=== PATIENT | female | born 1965 | race African-American/Black ===

== ENCOUNTER 2017-09-19 00:12 | Inpatient (IN) | payer BC, MEDICAID ==
[~2017-09-19] VITALS: Ht 160 cm; Wt 83.9 kg
[2017-09-19] VITALS (8 sets, daily range): BP systolic 128–166; BP diastolic 61–93
[~2017-09-19 00:12] MED LIST: ATOR20TA65 PO; CARV12.545 PO; CLON0.2T PO; HYDR25TA PO; INSU3INS6 SUBCUT; SITA100T11 PO
[2017-09-19] MEDS ORDERED: ALBUTEROL (0.083%) 2.5MG/3ML NEB HHN STA (00:18)
[2017-09-19] MEDS ORDERED: METHYLPREDNISOLONE SOD SUCC 125 MG/2 ML VIAL IV STA (00:18)
[2017-09-19] MEDS ORDERED: IPRATROPIUM BROMIDE (0.02%) 0.5MG/2.5ML NEB HHN STA (00:18)
[2017-09-19] MEDS ORDERED: ASPIRIN 81MG TABLET PO ONE (00:30)
[2017-09-19] MEDS ORDERED: MAGNESIUM 2 G PREMIX 50 ML IV ONE (00:30)
[2017-09-19] MEDS ORDERED: LEVOFLOXACIN 250MG PREMIX 50 ML IV ONE (00:30)
[2017-09-19] MEDS ORDERED: LABETALOL HCL 20MG/4ML CARPUJECT IV ONE ×2 (00:45→04:15)
[2017-09-19] MEDS ORDERED: FUROSEMIDE 40MG/4ML VIAL IVP ONE (00:45)
[2017-09-19] MEDS ORDERED: LABETALOL 5MG/ML SYR 20 MG/4 ML SYRINGE IV NR ×2 (01:00→04:30)
[2017-09-19 01:08] LABS: BASOPHILS % 0.8 % (0.0-2.0); EOSINOPHILS % 5.7 % (0.0-5.0); HEMATOCRIT. 42.4 % (36.0-48.0); HEMOGLOBIN. 12.8 g/dL (12.0-16.0); LYMPHOCYTES % 44.5 % (20.0-50.0); MEAN CORPUSCULAR HEMOGLOBIN 26.3 pg (28.0-32.0); MEAN CORPUSCULAR VOLUME 87.6 fL (81.0-99.0); MEAN PLATELET VOLUME 10.1 fl (7.4-10.4); MONOCYTES % 4.3 % (2.0-8.0); NEUTROPHILS % 44.7 % (40.0-76.0); PLATELET 266 x1000/uL (130-400); RED BLOOD CELL COUNT 4.84 mill/uL (4.2-5.4); RED CELL DISTRIBUTION WIDTH 17.4 % (11.6-14.6)
[2017-09-19 01:15] LABS: PARTIAL THROMBOPLASTIN TIME 21.2 sec (23.4-31.0); PROTHROMBIN TIME 10.6 sec (9.4-11.6)
[2017-09-19 01:46] LABS: CLARITY URINE CLEAR (CLEAR); COLOR URINE YELLOW (YELLOW); GLUCOSE URINE 2+ (NEGATIVE); KETONES URINE NEGATIVE (NEGATIVE); LEUKOCYTE ESTERASE URINE NEGATIVE (NEGATIVE); NITRITE URINE NEGATIVE (NEGATIVE); OCCULT BLOOD URINE TRACE (NEGATIVE); PROTEIN URINE 3+ (NEGATIVE); SPECIFIC GRAVITY URINE 1.012 (1.005-1.030); UROBILINOGEN URINE 0.2 E.U./dL (0.2-1.0)
[2017-09-19 02:12] LABS: CARBON DIOXIDE 17 mEq/L (21-32); CHLORIDE 107 mEq/L (98-107); ETHANOL BLOOD < 10 mg/dL; HCG SCREEN NEGATIVE; TROPONIN I 0.13 ng/mL (0.00-0.04)
[2017-09-19 02:21] LABS: *AMPHETAMINES SCREEN URINE NEGATIVE (NEGATIVE); *BARBITURATES SCREEN URINE NEGATIVE (NEGATIVE); *BENZODIAZEPINES SCREEN URINE NEGATIVE (NEGATIVE); *COCAINE SCREEN URINE NEGATIVE (NEGATIVE); CANNABINOID URINE SCREEN NEGATIVE (NEGATIVE); METHADONE URINE SCREEN NEGATIVE (NEGATIVE); OPIATES URINE SCREEN NEGATIVE (NEGATIVE); PHENCYCLIDINE URINE SCREEN NEGATIVE (NEGATIVE)
[2017-09-19] MEDS ORDERED: INSULIN REGULAR (HUMULIN R) 300UNITS/3ML IV NR (02:30)
[2017-09-19] MEDS ORDERED: SODIUM CHLORIDE 0.9% 1000ML BAG (SEPSIS BOLUS) IV NR (02:30)
[2017-09-19] MEDS ORDERED: ACETAMINOPHEN 325MG TABLET PO ONE (02:30)
[2017-09-19 02:44] LABS: BG BASE EXCESS -13.9 mmol/L (-2.0-2.0); BG BILEVEL POS AIRWAY PRESSURE 15/5; BG CARBOXYHEMOGLOBIN 0.3 % (0.5-1.5); BG DEOXYHEMOGLOBIN 0.7 % (0.0-5.0); BG FRACTION INSPIRED OXYGEN 100; BG HCO3 ACT 16.2 mmol/L (22.0-26.0); BG METHEMOGLOBIN 0.6 % (0.0-1.5); BG OXYGEN SATURATION 99.3 % (92.0-98.5); BG OXYHEMOGLOBIN 98.4 % (94.0-97.0); BG PCO2 55.5 mmHg (35.0-45.0); BG PH 7.084 (7.350-7.450); BG PO2 262.7 mmHg (75.0-100.0); BG SAMPLE SITE LEFT RADIAL; BG VENT MODE MASK - BIPAP; BG VENT RATE 16 set
[2017-09-19 03:19] LABS: BG BASE EXCESS -2.1 mmol/L (-2.0-2.0); BG CARBOXYHEMOGLOBIN 0.7 % (0.5-1.5); BG DEOXYHEMOGLOBIN 1.4 % (0.0-5.0); BG FRACTION INSPIRED OXYGEN 100; BG HCO3 ACT 23.1 mmol/L (22.0-26.0); BG METHEMOGLOBIN 0.4 % (0.0-1.5); BG OXYGEN SATURATION 98.6 % (92.0-98.5); BG OXYHEMOGLOBIN 97.5 % (94.0-97.0); BG PCO2 41.5 mmHg (35.0-45.0); BG PH 7.364 (7.350-7.450); BG PO2 118.3 mmHg (75.0-100.0); BG SAMPLE SITE LEFT RADIAL; BG TOTAL HEMOGLOBIN 13.3 g/dL (12.0-18.0); BG VENT MODE MASK - NRB
[2017-09-19] MEDS ORDERED: IPRATROPIUM/ALBUTEROL 0.5-3(2.5)MG/3ML NEB HHN ONE (05:00)
[2017-09-19] MEDS ORDERED: FUROSEMIDE 40MG/4ML VIAL IVP NR (05:15)
[2017-09-19] MEDS ORDERED: CLOPIDOGREL 75MG TABLET PO NR (05:45)
[2017-09-19] MEDS ORDERED: CLONIDINE 0.2MG TABLET PO SCH (06:45)
[2017-09-19] MEDS ORDERED: LANTUSUD SUBCUT (09:13)
[2017-09-19] MEDS ORDERED: CLON0.2T PO (09:13)
[2017-09-19] MEDS ORDERED: COR12 PO (09:13)
[2017-09-19] MEDS ORDERED: SITA100T11 PO (09:13)
[2017-09-19] MEDS ORDERED: HYDR-4135 PO (09:13)
[2017-09-19] MEDS ORDERED: DEXTROSE 50% WATER 50ML SYRINGE IV PRN (09:45)
[2017-09-19] MEDS ORDERED: CARVEDILOL 12.5MG TABLET PO SCH (10:00)
[2017-09-19] MEDS: HYDRALAZINE HCL 50MG TABLET PO SCH ×2 (10:07→20:56)
[2017-09-19] MEDS: ASPIRIN 81MG EC TABLET PO SCH (11:30)
[2017-09-19] MEDS: BLOOD SUGAR DIAGNOSTIC STRIP TEST SCH ×3 (11:30→20:56)
[2017-09-19] MEDS: INSULIN LISPRO 100 UNITS/ML SUBCUT SCH ×3 (11:35→21:07)
[2017-09-19] MEDS: IPRATROPIUM/ALBUTEROL 0.5-3(2.5)MG/3ML NEB HHN SCH ×3 (12:29→20:03)
[2017-09-19] MEDS: LEVOFLOXACIN 500MG PREMIX 100 ML IV SCH (12:50)
[2017-09-19] MEDS: AMLODIPINE 5MG TABLET PO SCH ×2 (13:09→20:56)
[2017-09-19] MEDS: ENOXAPARIN 40MG/0.4ML SYR SUBCUT SCH (13:12)
[2017-09-19] MEDS: NITROGLYCERIN OINT 1GM/INCH UDPKT TD SCH ×2 (14:08→22:00)
[2017-09-19] MEDS: CLONIDINE 0.2MG TABLET PO SCH ×2 (14:09→22:23)
[2017-09-19] MEDS ORDERED: IPRATROPIUM/ALBUTEROL 0.5-3(2.5)MG/3ML NEB HHN PRN (15:30)
[2017-09-19] MEDS ORDERED: IPRATROPIUM/ALBUTEROL 0.5-3(2.5)MG/3ML NEB HHN SCH (16:00)
[2017-09-19] MEDS: BUDESONIDE 0.5MG/2ML NEB HHN SCH (16:28)
[2017-09-19] MEDS ORDERED: ACETAMINOPHEN 325MG TABLET PO PRN (20:30)
[2017-09-19] MEDS ORDERED: ZOLPIDEM TARTRATE 5MG TABLET PO PRN (20:45)
[2017-09-19] MEDS: ATORVASTATIN CALCIUM 10MG TABLET PO SCH (20:55)
[2017-09-19] MEDS: INSULIN DETEMIR UD 100 UNITS/ML SYR SUBCUT SCH (22:34)
[2017-09-20] VITALS (12 sets, daily range): BP systolic 120–151; BP diastolic 57–89
[2017-09-20] MEDS: IPRATROPIUM/ALBUTEROL 0.5-3(2.5)MG/3ML NEB HHN SCH ×6 (00:25→20:23)
[2017-09-20] MEDS: BUDESONIDE 0.5MG/2ML NEB HHN SCH ×3 (04:17→20:22)
[2017-09-20] MEDS: NITROGLYCERIN OINT 1GM/INCH UDPKT TD SCH ×4 (06:00→21:41)
[2017-09-20 06:28] LABS: BASOPHILS % 0.1 % (0.0-2.0); HEMATOCRIT. 33.1 % (36.0-48.0); HEMOGLOBIN. 10.5 g/dL (12.0-16.0); LYMPHOCYTES % 14.8 % (20.0-50.0); MEAN CORPUSCULAR HEMOGLOBIN 26.4 pg (28.0-32.0); MEAN CORPUSCULAR VOLUME 82.9 fL (81.0-99.0); MEAN PLATELET VOLUME 9.7 fl (7.4-10.4); MONOCYTES % 6.4 % (2.0-8.0); NEUTROPHILS % 78.7 % (40.0-76.0); PLATELET 184 x1000/uL (130-400); RED CELL DISTRIBUTION WIDTH 17.1 % (11.6-14.6)
[2017-09-20] MEDS: CLONIDINE 0.2MG TABLET PO SCH ×3 (06:35→21:26)
[2017-09-20 07:54] LABS: TROPONIN I 0.86 ng/mL (0.00-0.04)
[2017-09-20] MEDS: BLOOD SUGAR DIAGNOSTIC STRIP TEST SCH ×4 (07:58→21:30)
[2017-09-20] MEDS: INSULIN LISPRO 100 UNITS/ML SUBCUT SCH ×4 (08:30→21:38)
[2017-09-20 08:50] LABS: BG BASE EXCESS 0.5 mmol/L (-2.0-2.0); BG CARBOXYHEMOGLOBIN 0.2 % (0.5-1.5); BG DEOXYHEMOGLOBIN 3.4 % (0.0-5.0); BG FRACTION INSPIRED OXYGEN 28; BG HCO3 ACT 23.9 mmol/L (22.0-26.0); BG METHEMOGLOBIN 0.2 % (0.0-1.5); BG OXYGEN SATURATION 96.6 % (92.0-98.5); BG OXYHEMOGLOBIN 96.2 % (94.0-97.0); BG PCO2 34.5 mmHg (35.0-45.0); BG PH 7.459 (7.350-7.450); BG PO2 83.8 mmHg (75.0-100.0); BG SAMPLE SITE RIGHT RADIAL; BG TOTAL HEMOGLOBIN 11.7 g/dL (12.0-18.0); BG VENT MODE NASAL CANNULA
[2017-09-20] MEDS ORDERED: FUROSEMIDE 40MG/4ML VIAL IVP SCH (09:00)
[2017-09-20] MEDS: HYDRALAZINE HCL 50MG TABLET PO SCH ×2 (09:38→21:26)
[2017-09-20] MEDS: ASPIRIN 81MG EC TABLET PO SCH (09:38)
[2017-09-20] MEDS: AMLODIPINE 5MG TABLET PO SCH ×2 (09:39→21:26)
[2017-09-20] MEDS: ENOXAPARIN 40MG/0.4ML SYR SUBCUT SCH (09:39)
[2017-09-20] MEDS ORDERED: POTASSIUM CHLORIDE 20MEQ TABLET SR PO SCH (10:00)
[2017-09-20] MEDS: SODIUM CHLORIDE 0.45% 1,000 ML IV SCH ×2 (11:45→21:43)
[2017-09-20] MEDS: LEVOFLOXACIN 500MG PREMIX 100 ML IV SCH (11:51)
[2017-09-20] MEDS ORDERED: LIDOCAINE HCL 1% 20ML VIAL (Pyxis) INJ ONE (12:51)
[2017-09-20] MEDS ORDERED: IODIXANOL 320MG/ML 100 ML BOTTLE IV ONE (12:51)
[2017-09-20] MEDS ORDERED: MIDAZOLAM HCL 2 MG/2 ML VIAL ONE (13:18)
[2017-09-20] MEDS ORDERED: FENTANYL CITRATE/PF 50MCG/ML 2ML VIAL ONE (13:18)
[2017-09-20] MEDS: ATORVASTATIN CALCIUM 10MG TABLET PO SCH (21:26)
[2017-09-20] MEDS: INSULIN DETEMIR UD 100 UNITS/ML SYR SUBCUT SCH (21:39)
[2017-09-21] VITALS (10 sets, daily range): BP systolic 124–146; BP diastolic 2–87
[2017-09-21] MEDS: IPRATROPIUM/ALBUTEROL 0.5-3(2.5)MG/3ML NEB HHN SCH ×5 (00:36→15:52)
[2017-09-21] MEDS ORDERED: SODIUM CHLORIDE 0.45% 1,000 ML IV SCH (06:00)
[2017-09-21] MEDS: NITROGLYCERIN OINT 1GM/INCH UDPKT TD SCH ×2 (06:00→13:18)
[2017-09-21] MEDS: CLONIDINE 0.2MG TABLET PO SCH ×2 (06:31→13:19)
[2017-09-21] MEDS: INSULIN LISPRO 100 UNITS/ML SUBCUT SCH ×2 (06:35→12:38)
[2017-09-21] MEDS: BLOOD SUGAR DIAGNOSTIC STRIP TEST SCH ×2 (06:35→11:56)
[2017-09-21] MEDS: SODIUM CHLORIDE 0.45% 1,000 ML IV SCH (06:41)
[2017-09-21 06:44] LABS: BASOPHILS % 0.1 % (0.0-2.0); HEMATOCRIT. 35.4 % (36.0-48.0); HEMOGLOBIN. 11.1 g/dL (12.0-16.0); LYMPHOCYTES % 28.3 % (20.0-50.0); MEAN CORPUSCULAR HEMOGLOBIN 26.3 pg (28.0-32.0); MEAN CORPUSCULAR VOLUME 83.5 fL (81.0-99.0); MEAN PLATELET VOLUME 10.3 fl (7.4-10.4); NEUTROPHILS % 63.6 % (40.0-76.0); PLATELET 184 x1000/uL (130-400); RED BLOOD CELL COUNT 4.24 mill/uL (4.2-5.4); RED CELL DISTRIBUTION WIDTH 17.3 % (11.6-14.6)
[2017-09-21] MEDS: BUDESONIDE 0.5MG/2ML NEB HHN SCH (08:02)
[2017-09-21 08:18] LABS: TROPONIN I 0.6 ng/mL (0.00-0.04)
[2017-09-21] MEDS: ASPIRIN 81MG EC TABLET PO SCH (10:15)
[2017-09-21] MEDS: AMLODIPINE 5MG TABLET PO SCH (10:16)
[2017-09-21] MEDS: HYDRALAZINE HCL 50MG TABLET PO SCH (10:16)
[2017-09-21] MEDS ORDERED: INFLUENZA VIRUS VACCINE 0.5ML SYR IM ONE (10:45)
[2017-09-21] MEDS ORDERED: POTASSIUM CHLORIDE 20MEQ TABLET SR PO SCH (11:00)
[2017-09-21] MEDS ORDERED: CLON1PAT38 TD (11:20)
[2017-09-21] MEDS ORDERED: HYDR-4135 PO (11:20)
[2017-09-21] MEDS ORDERED: AMLO5TAB88 PO (11:20)
[2017-09-21] MEDS: LEVOFLOXACIN 500MG PREMIX 100 ML IV SCH (11:53)
[2017-09-22] MEDS ORDERED: LEVOFLOXACIN 500MG TABLET PO SCH (12:00)
== END 2017-09-21 16:15 | disposition home or self-care (01) | DRG 871 ==
LOC: EDBD 00:12 → ER 00:12 → MERGE 01:52 → 5EST 01:52 → CANRESERV 03:16 → ENRESERV 03:16 → EDBEDREQ 04:16 → EDBEDREQSVC 04:16 → EDBEDREQTM 04:16 → EDBEDREQSVC 05:49 → EDBEDREQ 05:49 → EDBEDREQTM 05:49 → ENRESERV 07:03
PROVIDERS: ADMIT Internal Medicine; ATTEND Internal Medicine
PROC: 5A09357 Assistance with Respiratory Ventilation, Less than 24 Consecutive Hours, Continuous Positive Airway Pressure (ICD-10-PCS; 2017-09-19)
PROC: 4A023N7 Measurement of Cardiac Sampling and Pressure, Left Heart, Percutaneous Approach (ICD-10-PCS; principal; 2017-09-20)
PROC: B2111ZZ Fluoroscopy of Multiple Coronary Arteries using Low Osmolar Contrast (ICD-10-PCS; 2017-09-20)
PROC: B2151ZZ Fluoroscopy of Left Heart using Low Osmolar Contrast (ICD-10-PCS; 2017-09-20)
DX: A41.9 Sepsis, unspecified organism (principal); J96.21 Acute and chronic respiratory failure with hypoxia; I50.43 Acute on chronic combined systolic (congestive) and diastolic (congestive) heart failure; E87.2 Acidosis; J44.1 Chronic obstructive pulmonary disease with (acute) exacerbation; E11.65 Type 2 diabetes mellitus with hyperglycemia; J45.901 Unspecified asthma with (acute) exacerbation; J96.22 Acute and chronic respiratory failure with hypercapnia; E87.6 Hypokalemia; I11.0 Hypertensive heart disease with heart failure; T78.3XXA Angioneurotic edema, initial encounter; Z79.899 Other long term (current) drug therapy; Z82.5 Family history of asthma and other chronic lower respiratory diseases; Z82.49 Family history of ischemic heart disease and other diseases of the circulatory system; Z79.4 Long term (current) use of insulin; I25.2 Old myocardial infarction; Z90.49 Acquired absence of other specified parts of digestive tract
CPT/HCPCS: 36415; 36600; 70450; 71010; 80048; 80053; 80061; 80305; 81001; 82375; 82805; 82962; 83605; 83690; 83880; 84484; 84703; 85025; 85379; 85610; 85730; 87040; 87086; 90686; 93005; 93306; 93458; 94640; 94660; 94664; 96361; 96365; 96366; 96367; 96375; 97162; 97166; 99291; C1760; C1769; C1887; C1893; G0482; J1644; J1650; J1815; J1940; J1956; J2250; J2930; J3010; J3475; J3490; J7030; J7050; J7620; J7626; Q9967

== ENCOUNTER 2017-10-10 04:09 | Emergency (ER) | payer BC ==
[~2017-10-10] VITALS: Ht 160 cm; Wt 82.0 kg
[~2017-10-10 04:09] MED LIST changes: +AMLO5TAB88 PO; +CLON1PAT38 TD; +HYDR-4135 PO; +LANTUSUD SUBCUT
[2017-10-10] MEDS ORDERED: LABETALOL 5MG/ML SYR 20 MG/4 ML SYRINGE IV ONE (05:30)
[2017-10-10] MEDS ORDERED: LABETALOL 5MG/ML SYR 20 MG/4 ML SYRINGE IV SCH (05:30)
[2017-10-10] MEDS ORDERED: LABETALOL HCL 20MG/4ML CARPUJECT IV ONE (05:30)
[2017-10-10] MEDS ORDERED: NITROGLYCERIN OINT 1GM/INCH UDPKT TD ONE (05:30)
[2017-10-10] MEDS ORDERED: ASPIRIN 81MG TABLET PO ONE (05:30)
[2017-10-10 05:49] LABS: BASOPHILS % 0.2 % (0.0-2.0); EOSINOPHILS % 1.4 % (0.0-5.0); HEMATOCRIT. 41.4 % (36.0-48.0); HEMOGLOBIN. 12.6 g/dL (12.0-16.0); MEAN CORPUSCULAR HEMOGLOBIN 25.6 pg (28.0-32.0); MEAN CORPUSCULAR VOLUME 84.3 fL (81.0-99.0); MEAN PLATELET VOLUME 9.5 fl (7.4-10.4); MONOCYTES % 6.6 % (2.0-8.0); NEUTROPHILS % 79.8 % (40.0-76.0); PLATELET 301 x1000/uL (130-400); RED BLOOD CELL COUNT 4.91 mill/uL (4.2-5.4); RED CELL DISTRIBUTION WIDTH 16.6 % (11.6-14.6)
[2017-10-10 06:09] LABS: CARBON DIOXIDE 22 mEq/L (21-32); CHLORIDE 106 mEq/L (98-107)
[2017-10-10 06:13] LABS: TROPONIN I 0.07 ng/mL (0.00-0.04)
[2017-10-10 06:56] LABS: BG BASE EXCESS -1.7 mmol/L (-2.0-2.0); BG CARBOXYHEMOGLOBIN 0.6 % (0.5-1.5); BG DEOXYHEMOGLOBIN 2.1 % (0.0-5.0); BG FRACTION INSPIRED OXYGEN 21; BG HCO3 ACT 21.3 mmol/L (22.0-26.0); BG METHEMOGLOBIN 0.4 % (0.0-1.5); BG OXYGEN SATURATION 97.9 % (92.0-98.5); BG OXYHEMOGLOBIN 96.9 % (94.0-97.0); BG PH 7.454 (7.350-7.450); BG PO2 96.3 mmHg (75.0-100.0); BG SAMPLE SITE RIGHT BRACHIAL; BG TOTAL HEMOGLOBIN 13.3 g/dL (12.0-18.0); BG VENT MODE ROOM AIR
[2017-10-10 07:56] VITALS: BP 123/71
== END 2017-10-10 08:10 | disposition home or self-care (01) ==
LOC: ER 04:45
DX: R00.2 Palpitations (principal); B34.9 Viral infection, unspecified; E11.9 Type 2 diabetes mellitus without complications; I10 Essential (primary) hypertension; Z79.4 Long term (current) use of insulin; Z79.82 Long term (current) use of aspirin; Z90.49 Acquired absence of other specified parts of digestive tract; Z90.710 Acquired absence of both cervix and uterus
CPT/HCPCS: 36415; 36600; 71010; 80053; 82375; 82805; 83880; 84484; 85025; 93005; 96374; 99285; J3490; Z7610